=== PATIENT | female | born 1970 ===

== ENCOUNTER 2017-01-19 21:21 | Observation (INO) | payer SELFPAY ==
[2017-01-19 21:21] VITALS: BMI 31.3
[2017-01-19 21:27] VITALS: BP 157/64; PULSE 77; RESP 21; TEMP 98.2; O2SAT 100
[2017-01-19] MEDS ORDERED: Sodium Chloride 0.9% 1,000 ML IV STA (22:20)
[2017-01-19] MEDS ORDERED: Iohexol 240 (50 ml) PO ONE (22:21)
[2017-01-19 22:28] LABS: URINE BILIRUBIN NEGATIVE (NEGATIVE); URINE BLOOD NEGATIVE (NEGATIVE); URINE CLARITY CLOUDY (Clear); URINE COLOR YELLOW (YELLOW); URINE GLUCOSE (UA) NEG (Normal); URINE LEUKOCYTE ESTERASE MOD Leu/uL (Negative); URINE NITRATE NEGATIVE (NEGATIVE); URINE PROTEIN 30 mg/dL (NEGATIVE); URINE UROBILINOGEN 0.2-1.0 mg/dL (0.2-1.0)
[2017-01-19 22:30] LABS: HEMOGLOBIN 14.4 g/dL (12.0-16.0); MEAN CELL VOLUME 89.7 fl (81.0-99.0); MEAN CORPUSCULAR HEMOGLOBIN 30.7 pg (27.0-31.0); MEAN CORPUSCULAR HGB CONC 34.3 g/dL (33.0-37.0); MEAN PLATELET VOLUME 8.4 fl (7.2-11.7); PLATELET COUNT 246 K/uL (130-400); RED CELL DISTRIBUTION WIDTH 13.2 % (11.5-14.5); WHITE BLOOD COUNT 11.6 K/uL (4.8-10.8)
[2017-01-19 22:39] LABS: ALB/GLOB RATIO 1.3 (1.0-2.1); ALBUMIN 4.8 g/dL (3.5-5.0); ALT/SGPT 44 U/L (9-52); AST/SGOT 32 U/L (14-36); BLOOD UREA NITROGEN 12 mg/dl (7-17); CALCIUM 9.9 mg/dL (8.4-10.2); GFR AFRICAN-AMERICAN > 60; GFR NON-AFRICAN AMERICAN > 60; LIPASE 107 U/L (23-300)
--- NOTE | 2017-01-19 22:42 | ED PDOC ---
HPI: Abdomen Time Seen by Provider: 01/19/17 21:32 Chief Complaint (Nursing): Abdominal Pain Chief Complaint (Provider): Abdominal Pain History Per: Patient History/Exam Limitations: no limitations Onset/Duration Of Symptoms: Days (x4) Current Symptoms Are (Timing): Still Present Additional Complaint(s): Gabbi Dumont is a 46 year old female with previous medical history of H. Pylori, gastritis, and pre-diabetes, who presents to the emergency department with a complaint of epigastric abdominal pain radiating to RLQ associated with nausea and vomiting ongoing for 4 days. Denies any constipation , diarrhea, urinary complaints, fever, cough, shortness of breath, bloody or bilious vomiting. Pain scale: 8/10 PMD: none provided Past Medical History Reviewed: Historical Data, Nursing Documentation, Vital Signs Vital Signs: Last Vital Signs Temp 98.2 F 01/19/17 21:25 Pulse 77 01/19/17 21:25 Resp 21 01/19/17 21:25 BP 157/64 H 01/19/17 21:25 Pulse Ox 100 01/20/17 03:07 - Medical History PMH: Diabetes (pre-diabetes), Gastritis, Hypercholesterolemia Other PMH: H. pylori - Family History Family History: States: Stroke, Diabetes - Social History Current smoker - smoking cessation education provided: No Alcohol: None Drugs: Denies - Home Medications Home Medications: Ambulatory Orders Medication Instructions Recorded Azithromycin [Zithromax] 250 mg PO DAILY #4 tab 09/02/16 Dicyclomine [Bentyl] 20 mg PO Q12 PRN #20 tab 01/20/17 Ondansetron ODT [Zofran ODT] 4 mg PO Q6 PRN #16 odt 01/20/17 - Allergies Allergies/Adverse Reactions: Allergies Allergy/AdvReac Type Severity Reaction Status Date / Time No Known Allergies Allergy Verified 09/02/16 10:02 Review of Systems ROS Statement: Except As Marked, All Systems Reviewed And Found Negative Constitutional: Positive for: Other (pain scale: 8/10). Negative for: Fever Respiratory: Negative for: Cough, Shortness of Breath Gastrointestinal: Positive for: Nausea, Vomiting, Abdominal Pain (epigastric radiating to RLQ). Negative for: Diarrhea, Constipation, Other (bloody or billius vomiting) Genitourinary Female: Negative for: Dysuria, Hematuria Physical Exam - Reviewed Nursing Documentation Reviewed: Yes Vital Signs Reviewed: Yes - Physical Exam Appears: Positive for: Non-toxic, Uncomfortable Head Exam: Positive for: ATRAUMATIC, NORMAL INSPECTION, NORMOCEPHALIC Skin: Positive for: Normal Color, Warm, DRY Eye Exam: Positive for: Normal appearance Neck: Positive for: Normal, Painless ROM Cardiovascular/Chest: Positive for: Regular Rate, Rhythm Respiratory: Positive for: Normal Breath Sounds. Negative for: Crackles, Rales , Rhonchi, Wheezing Gastrointestinal/Abdominal: Positive for: Tenderness (epigastric and RLQ ). Negative for: Normal Exam Back: Positive for: Normal Inspection. Negative for: L CVA Tenderness, R CVA Tenderness Extremity: Positive for: Normal ROM Neurologic/Psych: Positive for: Alert, Oriented - Laboratory Results Result Diagrams: 01/19/17 22:23 01/19/17 22:23 - ECG O2 Sat by Pulse Oximetry: 100 (RA) Pulse Ox Interpretation: Normal Medical Decision Making Medical Decision Making: Initial Impression: Abdominal pain; RLQ tenderness Initial Plan: * CT ABD/Pelvis with PO and IV contrast * Labs * Lipase * Urine dipstick * Urine * Pepcid 20mg IV * Omnipaque 50ml PO * Toradol 10mg IV * NS 1,000 ml IV per 1,000 mls/hr * Zofran 4mg IV * Urinalysis * Re-evaluate Time: 22:34 --EK/30. Sinus rhythm bradycardia. [address] or T-wave abnormality. 0004: --PT resting comfortably, vital signs reviewed. Abdominal workups Pending CT 0303: CT Result EXAM: CT Abdomen and Pelvis With Intravenous Contrast CLINICAL HISTORY: 46 years old, female; Pain; Abdominal pain; Localized; Upper; Additional info: Abd pain TECHNIQUE: Axial computed tomography images of the abdomen and pelvis with intravenous contrast. This CT exam was performed using one or more of the following dose reduction techniques : automated exposure control, adjustment of the mA and/or kV according to patient size, and/ or use of iterative reconstruction technique. Coronal and sagittal reformatted images were created and reviewed. CONTRAST: 90 mL of [id number] administered intravenously. EXAM DATE/TIME: 01/19/2017 10:21 PM COMPARISON: CT - ABD PELVIS PO IV CONTRAST 08/18/2014 11:51:30 PM FINDINGS: There is an approximately 2.5 cm enhancing subcapsular lesion in the right hepatic lobe, more prominent than on prior . AV malformation would have a similar appearance. The spleen is normal. The pancreas is normal. No gallstones. No hydronephrosis or perinephric stranding. The right colon is distended with stool consistent with mild constipation. A normal appendix is identified series 3 images 110 - 120 coronal images 51-57. There is a very small umbilical fat hernia. Again seen are uterine fibroids. The largest is located on the right and has calcified in the interim since the prior study. IMPRESSION: Uterine fibroids one of which has calcified in the interim. Mild right-sided constipation. Benign-appearing right hepatic lesion. Thank you for allowing us to participate in the care of your patient. Discharge Instructions: Re-evaluation. Patient feels better. Discussed results and plan with patient who expresses understanding. Counseling was provided regarding the diagnosis and prognosis. All questions answered and there is agreement with the plan to discharge home with instructions. Patient stable for discharge. Return if symptoms persist or worsen. Scribe Attestation: Documented by Janel Miles, acting as a scribe for Dk Self MD. Documented by Annalisa Valadez, acting as a scribe for Dk Self MD. Provider Scribe Attestation: All medical record entries made by the Scribe were at my direction and personally dictated by me. I have reviewed the chart and agree that the record accurately reflects my personal performance of the history, physical exam, medical decision making, and the department course for this patient. I have also personally directed, reviewed, and agree with the discharge instructions and disposition. ED OBSERVATION Discharge: Yes Date of observation admission: 01/19/17 Time of observation admission: 22:34 - Observation admission statement Patient is being placed in observation because:: Abdominal pain workups - Goals of Observation Goals of observation are:: Pending Labs and CT - Progress Note Progress Note: 01/20/17 00:04 --PT resting comfortably, vital signs reviewed, pending CT. Disposition - Clinical Impression Clinical Impression: Abdominal pain, Gastritis - Patient ED Disposition Is Patient to be Admitted: No Comment: Follow up with GI specialist - Disposition Disposition: Routine/Home Disposition Time: 22:34 Condition: STABLE
[2017-01-19] MEDS ORDERED: Iohexol 240 (50 ml) ONE (23:33)
[2017-01-20 00:33] LABS: LYMPH % 48.2 % (20.0-40.0); MONO % 4.8 % (0.0-10.0); NEUT % 45.2 % (50.0-75.0)
[2017-01-20 00:34] LABS: BASO % 0.3 % (0.0-2.0); EOS % 1.5 % (0.0-4.0); NEUT # 5.4 K/uL (1.8-7.0); NRBC % 0.2 % (0.0-0.0)
[2017-01-20 00:35] LABS: EOS # 0.2 K/uL (0.0-0.7); LYMPH # 5.8 K/uL (1.0-4.3); MONO # 0.6 K/uL (0.0-0.8); TOTAL CELLS COUNTED 100
[2017-01-20 00:43] LABS: EOSINOPHIL 2 % (0-7); LYMPHOCYTE 43 % (20-50); MONOCYTE 2 % (0-10); NEUTROPHIL 48 % (42-75); PLATELET ESTIMATE NORMAL (NORMAL); REACTIVE LYMPHOCYTES 5 % (0-0)
[2017-01-20] MEDS ORDERED: Iohexol 300 100 ML IJ ONE (01:50)
[2017-01-20] MEDS ORDERED: Sodium Chloride 0.9% 50 ML IV ONE (01:50)
--- NOTE | 2017-01-20 15:41 | CT ---
PROCEDURE: CT abdomen and pelvis dated 01/20/2017 HISTORY: abd pain COMPARISON: Comparison made with CT scan abdomen and pelvis dated 08/18/2014 TECHNIQUE: Contiguous axial images of the abdomen and pelvis performed following oral and intravenous injection of approximately 90 cc of Omnipaque 300 contrast material. N. Coronal and Sagittal reformats generated. Radiation dose: Total exam DLP = 710.27 mGy-cm. This CT exam was performed using one or more of the following dose reduction techniques: Automated exposure control, adjustment of the mA and/or kV according to patient size, and/or use of iterative reconstruction technique. FINDINGS: LOWER THORAX: Lung bases clear. No infiltrate effusion or basilar pneumothorax. Tiny hiatal hernia. Heart size within range of normal. No pericardial effusion. LIVER: There is an approximately 2.5 x 2.0 cm heterogeneously enhancing lesion in the posterior superior right lobe liver beginning (subcapsular location) most consistent with a hemangioma or possibly AVM. This lesion appears appears more prominent than the prior study. . Mild fatty hepatic infiltration. Portal and splenic veins are opacified. GALLBLADDER AND BILE DUCTS: Unremarkable. PANCREAS: Unremarkable. No mass. No ductal dilatation. SPLEEN: Unremarkable. No splenomegaly. ADRENALS: Unremarkable. KIDNEYS AND URETERS: Unremarkable. No stone or hydronephrosis. BLADDER: Grossly unremarkable. REPRODUCTIVE: Uterine fibroids the largest has developed calcification since the prior exam. APPENDIX: Normal-appearing appendix. . BOWEL: Evaluation of the bowel is somewhat limited due to incomplete opacification. Stomach is incompletely distended which presumably accounts for thick-walled appearance. PERITONEUM: Unremarkable. No fluid collection. No free air. . Mild localized diastases mid anterior abdominal wall. Small fat containing umbilical hernia. LYMPH NODES: Unremarkable. No enlarged lymph nodes. VASCULATURE: Unremarkable. No aortic aneurysm. BONES: No fracture or destructive lesion. OTHER FINDINGS: None. IMPRESSION: The enhancing lesion posterior superior right lobe liver possibly representing a hemangioma or AVM. Followup MRI could be performed further evaluation. Mild fatty hepatic infiltration. Findings consistent with mild constipation. Small fat containing umbilical hernia with localized diastases mid anterior abdominal wall. Uterine fibroids the largest of which on the right side exhibits some calcification . Note this report was placed in PA review folder followup
== END 2017-01-20 03:23 | disposition home or self-care (01) ==
LOC: H.ER 21:21 → H.EROBSV 22:22
PROVIDERS: ADMIT Emergency Medicine; ATTEND Emergency Medicine
DX: K29.70 Gastritis, unspecified, without bleeding (principal); D25.9 Leiomyoma of uterus, unspecified; E78.00 Pure hypercholesterolemia, unspecified; K59.00 Constipation, unspecified; Z86.19 Personal history of other infectious and parasitic diseases; R73.03 Prediabetes; R10.31 Right lower quadrant pain
CPT/HCPCS: 74177; 80053; 81003; 81025; 83690; 85025; 99282; G0378; J1885; J2405; J7040; Q9966; Q9967

== ENCOUNTER 2017-06-05 10:19 | Emergency (ER) | payer OTHER ==
[2017-06-05 10:29] VITALS: BMI 30.7
[2017-06-05] MEDS ORDERED: Sodium Chloride 0.9% 1,000 ML IV STA (10:42)
[2017-06-05] MEDS ORDERED: Alum-Mag Hydrox-Simethicone Susp (30 mL) PO ONE (10:43)
[2017-06-05 10:56] LABS: BASO % 0.3 % (0.0-2.0); EOS # 0.1 K/uL (0.0-0.7); HEMATOCRIT 40.4 % (34.0-47.0); LYMPH # 4.1 K/uL (1.0-4.3); LYMPH % 50.7 % (20.0-40.0); MEAN CELL VOLUME 89.1 fl (81.0-99.0); MEAN CORPUSCULAR HEMOGLOBIN 30.8 pg (27.0-31.0); MEAN CORPUSCULAR HGB CONC 34.6 g/dL (33.0-37.0); MEAN PLATELET VOLUME 8.2 fl (7.2-11.7); MONO # 0.5 K/uL (0.0-0.8); MONO % 6.2 % (0.0-10.0); NEUT # 3.4 K/uL (1.8-7.0); NEUT % 41.8 % (50.0-75.0); NRBC % 0.1 % (0.0-0.0); RED CELL DISTRIBUTION WIDTH 12.8 % (11.5-14.5); WHITE BLOOD COUNT 8.2 K/uL (4.8-10.8)
[2017-06-05] MEDS ORDERED: Alum-Mag Hydrox-Simethicone Susp (30 mL) ONE (10:59)
[2017-06-05 11:08] LABS: ALB/GLOB RATIO 1.1 (1.0-2.1); ALKALINE PHOSPHATASE 90 U/L (38-126); ALT/SGPT 79 U/L (9-52); AST/SGOT 51 U/L (14-36); BILIRUBIN,TOTAL 0.6 mg/dl (0.2-1.3); BLOOD UREA NITROGEN 15 mg/dl (7-17); CALCIUM 8.9 mg/dL (8.4-10.2); CARBON DIOXIDE 25 mmol/L (22-30); CHLORIDE 106 mmol/L (98-107); GFR AFRICAN-AMERICAN > 60; GLUCOSE,RANDOM 114 mg/dL (65-105); LIPASE 81 U/L (23-300); POTASSIUM 3.4 MMOL/L (3.6-5.0); SODIUM 143 mmol/l (132-148); TOTAL PROTEIN 8.2 G/DL (6.3-8.2)
[2017-06-05 11:18] LABS: URINE BACTERIA RARE (<OCC); URINE BILIRUBIN NEGATIVE (NEGATIVE); URINE BLOOD NEGATIVE (NEGATIVE); URINE COLOR YELLOW (YELLOW); URINE GLUCOSE (UA) NEG (Normal); URINE KETONE TRACE mg/dL (NEGATIVE); URINE LEUKOCYTE ESTERASE TRACE Leu/uL (Negative); URINE PROTEIN NEGATIVE (NEGATIVE); URINE UROBILINOGEN 0.2-1.0 mg/dL (0.2-1.0)
[2017-06-05 11:20] LABS: WBC URINE 9 /hpf (0-5)
[2017-06-05 11:35] LABS: RBC URINE 2 /hpf (0-3)
--- NOTE | 2017-06-05 12:45 | US ---
HISTORY: epigastric and abd pain COMPARISON: None. TECHNIQUE: Sonographic evaluation of the abdomen. FINDINGS: LIVER: Measures 15.4 cm. Normal echogenicity of the liver parenchyma. No mass. No intrahepatic bile duct dilatation. GALLBLADDER: Unremarkable. No gallstones. COMMON BILE DUCT: Measures 6 mm. No stones. No dilatation. PANCREAS: Unremarkable as visualized. No mass. No ductal dilatation. RIGHT KIDNEY: Measures 10.9cm. Normal echogenicity. No calculus, mass, or hydronephrosis. LEFT KIDNEY: Measures 10.9cm. Normal echogenicity. No calculus, mass, or hydronephrosis. SPLEEN: Normal in size and contour. No mass. AORTA: No aneurysmal dilatation. IVC: Unremarkable. OTHER FINDINGS: None. IMPRESSION: Unremarkable abdominal sonogram.
[2017-06-05 15:37] VITALS: BP 115/69; PULSE 79; RESP 18; TEMP 98; O2SAT 98
--- NOTE | 2017-06-05 17:38 | ED PDOC ---
HPI: Abdomen Time Seen by Provider: 06/05/17 10:35 Chief Complaint (Nursing): Abdominal Pain Chief Complaint (Provider): Abdominal Pain History Per: Patient History/Exam Limitations: no limitations Onset/Duration Of Symptoms: Intermittent Episodes (over several weeks) Current Symptoms Are (Timing): Still Present Additional Complaint(s): 46 y/o female with past medical history of H pylori and gastritis presents to the ED complaining of epigastric pain ongoing intermittently over several weeks. Patient describes the pain as sharp that radiates to the back and symptoms are similar to H pylori. She experienced two episodes of vomiting (non- bloody). Denies cough, shortness of breath, melena, rectal bleeding or any further medical complaints. Past Medical History Reviewed: Historical Data, Nursing Documentation, Vital Signs Vital Signs: Last Vital Signs Temp 98 F 06/05/17 15:36 Pulse 79 06/05/17 15:36 Resp 18 06/05/17 15:36 BP 115/69 06/05/17 15:36 Pulse Ox 98 06/05/17 15:36 - Medical History PMH: Diabetes (pre-diabetes), Gastritis, Hypercholesterolemia Other PMH: H Pylori - Family History Family History: States: Stroke, Diabetes - Social History Current smoker - smoking cessation education provided: No Alcohol: None Drugs: Denies - Home Medications Home Medications: Ambulatory Orders Medication Instructions Recorded Pantoprazole Sodium [Protonix] 40 mg PO DAILY #14 ect 06/05/17 - Allergies Allergies/Adverse Reactions: Allergies Allergy/AdvReac Type Severity Reaction Status Date / Time No Known Allergies Allergy Verified 06/05/17 10:42 Review of Systems ROS Statement: Except As Marked, All Systems Reviewed And Found Negative (As per HPI, otherwise negative) Respiratory: Negative for: Cough, Shortness of Breath Gastrointestinal: Positive for: Nausea, Vomiting, Abdominal Pain (Epigastric pain). Negative for: Melena, Other (Rectal bleeding) Physical Exam - Reviewed Nursing Documentation Reviewed: Yes Vital Signs Reviewed: Yes - Physical Exam Appears: Positive for: Non-toxic, No Acute Distress Head Exam: Positive for: ATRAUMATIC, NORMAL INSPECTION, NORMOCEPHALIC Skin: Positive for: Normal Color, Warm, Dry Cardiovascular/Chest: Positive for: Regular Rate, Rhythm. Negative for: Murmur Respiratory: Positive for: Normal Breath Sounds. Negative for: Accessory Muscle Use, Respiratory Distress Gastrointestinal/Abdominal: Positive for: Tenderness (mild epigastric tenderness , negative garcia's sign) Neurologic/Psych: Positive for: Alert, Oriented (x3) - Laboratory Results Result Diagrams: 06/05/17 10:53 06/05/17 10:53 - ECG ECG: Positive for: Interpreted By Me, Viewed By Me ECG Rhythm: Positive for: Sinus Rhythm (83). Negative for: ST/T Changes O2 Sat by Pulse Oximetry: 98 (RA) Pulse Ox Interpretation: Normal Medical Decision Making Medical Decision Making: Time: 10:42 Initial Impression: epigastric pain Plan: --CMP --Lipase --Troponin I --CBC w/ diff --Urine dipstick --Urine --Aluminum hydroxide/magnesium 30 ml PO --Sodium chloride 1L IV --Zofran 4mg IV --Pantoprazole 40 mg IVP --Urinalysis --Abdomen US --Reevaluation Time: 12:43 Abdomen Ultrasound FINDINGS: LIVER: Measures 15.4 cm. Normal echogenicity of the liver parenchyma. No mass. No intrahepatic bile duct dilatation. GALLBLADDER: Unremarkable. No gallstones. COMMON BILE DUCT: Measures 6 mm. No stones. No dilatation. PANCREAS: Unremarkable as visualized. No mass. No ductal dilatation. RIGHT KIDNEY: Measures 10.9cm. Normal echogenicity. No calculus, mass, or hydronephrosis. LEFT KIDNEY: Measures 10.9cm. Normal echogenicity. No calculus, mass, or hydronephrosis. SPLEEN: Normal in size and contour. No mass. AORTA: No aneurysmal dilatation. IVC: Unremarkable. OTHER FINDINGS: None. IMPRESSION: Unremarkable abdominal sonogram. Time: 12:50 mild elevation of transanimase ( similar as 2016) Time: 15:00 Upon provider reevaluation patient is feeling better, is medically stable, and requires no further treatment in the ED at this time. Patient will be home with Rx for Aluminum hydroxide/magnesium 30 ml PO, Sodium chloride 1L IV,Zofran 4mg IV, Pantoprazole 40 mg IVP . Counseling was provided and all questions were answered regarding diagnosis and need for follow up with [employer]. There is agreement to discharge plan. Return if symptoms persist or worsen. Clinical Impression: Epigastric pain Scribe Attestation: Documented by Yanira Polk acting as a scribe for Rashaun Garces MD. MD Corbin Attestation: All medical record entries made by the Scribe were at my direction and personally dictated by me. I have reviewed the chart and agree that the record accurately reflects my personal performance of the history, physical exam, medical decision making, and the department course for this patient. I have also personally directed, reviewed, and agree with the discharge instructions and disposition. Disposition - Clinical Impression Clinical Impression: Epigastric pain - Disposition Referrals: [facility] [Outside] Lizbeth INMAN,MD Gordon [Medical Doctor] - Disposition: Routine/Home Disposition Time: 15:00 Condition: STABLE Additional Instructions: Avoid alcohol, spicy foods or caffeine./ Return to ER for any worse or new symptoms. Take medications as directed. Prescriptions: Pantoprazole Sodium [Protonix] 40 mg PO DAILY #14 ect Instructions: Chest Pain (ED), Epigastric Pain (ED) Forms: [employer] (Citizen [place])
== END 2017-06-05 15:45 | disposition home or self-care (01) ==
LOC: H.ER 10:19
DX: R10.13 Epigastric pain (principal); E78.00 Pure hypercholesterolemia, unspecified; R73.03 Prediabetes; B96.81 Helicobacter pylori [H. pylori] as the cause of diseases classified elsewhere
CPT/HCPCS: 76700; 80053; 81003; 81025; 83690; 84484; 85025; 96361; 96374; 96375; 99283; C9113; J2405; J7040

== ENCOUNTER 2017-08-24 11:15 | Emergency (ER) | payer OTHER ==
[2017-08-24 12:13] VITALS: BMI 25.7
--- NOTE | 2017-08-24 12:22 | ED PDOC ---
HPI: Abdomen Time Seen by Provider: 08/24/17 12:12 Chief Complaint (Nursing): Chest Pain Chief Complaint (Provider): abd pain History Per: Patient Onset/Duration Of Symptoms: Gradual Current Symptoms Are (Timing): Still Present Severity: Mild Location Of Pain/Discomfort: Epigastric Quality Of Discomfort: Burning Associated Symptoms: denies: Fever, Chills, Nausea, Vomiting, Back Pain, Chest Pain, Constipation, Urinary Symptoms Exacerbating Factors: None Alleviating Factors: None Last Bowel Movement: Today Additional History Per: Patient Additional Complaint(s): 46 y/o female with past medical history of H pylori and gastritis presents to the ED complaining of epigastric pain ongoing intermittently over 3 days. Patient describes the pain as sharp that radiates to the back and symptoms are similar to H pylori. Denies cough, shortness of breath, melena, rectal bleeding or any further medical complaints. similar sx in thge past approx 8 mo ago had neg abd us. Past Medical History Reviewed: Historical Data, Nursing Documentation, Vital Signs Vital Signs: Last Vital Signs Temp 97.5 F L 08/24/17 12:00 Pulse 70 08/24/17 14:53 Resp 20 08/24/17 13:17 BP 117/70 08/24/17 14:53 Pulse Ox 98 08/24/17 17:37 - Medical History PMH: Diabetes (pre-diabetes), Gastritis, Hypercholesterolemia - Family History Family History: States: Stroke, Diabetes - Living Arrangements Living Arrangements: With Family - Social History Current smoker - smoking cessation education provided: No - Home Medications Home Medications: Ambulatory Orders Medication Instructions Recorded Pantoprazole Sodium [Protonix] 40 mg PO DAILY #14 ect 06/05/17 Esomeprazole Magnesium [Nexium] 20 mg PO DAILY #30 mateus. 08/24/17 - Allergies Allergies/Adverse Reactions: Allergies Allergy/AdvReac Type Severity Reaction Status Date / Time No Known Allergies Allergy Verified 06/05/17 10:42 Review of Systems ROS Statement: Except As Marked, All Systems Reviewed And Found Negative Constitutional: Negative for: Fever, Chills Cardiovascular: Negative for: Chest Pain, Palpitations Respiratory: Negative for: Cough, Shortness of Breath Gastrointestinal: Positive for: Abdominal Pain. Negative for: Nausea, Vomiting , Diarrhea Musculoskeletal: Negative for: Neck Pain Skin: Negative for: Rash Neurological: Negative for: Weakness, Numbness Physical Exam - Reviewed Nursing Documentation Reviewed: Yes Vital Signs Reviewed: Yes - Physical Exam Appears: Positive for: Uncomfortable Head Exam: Positive for: ATRAUMATIC, NORMAL INSPECTION, NORMOCEPHALIC Eye Exam: Positive for: Normal appearance, EOMI, PERRL Neck: Positive for: Normal, Painless ROM, Supple Cardiovascular/Chest: Positive for: Regular Rate, Rhythm, Chest Non Tender. Negative for: Edema, Gallop Respiratory: Positive for: Normal Breath Sounds. Negative for: Decreased Breath Sounds, Accessory Muscle Use, Crackles, Rales, Rhonchi, Stridor, Wheezing , Respiratory Distress Gastrointestinal/Abdominal: Positive for: Normal Exam, Bowel Sounds, Soft. Negative for: Tenderness Back: Positive for: Normal Inspection. Negative for: L CVA Tenderness, R CVA Tenderness Extremity: Positive for: Normal ROM. 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 Negative for: Motor/Sensory Deficits - Laboratory Results Result Diagrams: 08/24/17 12:52 08/24/17 12:52 - ECG ECG: Positive for: Interpreted By Dc ECG Rhythm: Positive for: Normal QRS, Normal ST Segment, Sinus Rhythm (rate of 83). Negative for: ST/T Changes Interpretation Of Abn EKG: no evidence of ischemia O2 Sat by Pulse Oximetry: 98 Pulse Ox Interpretation: Normal - Radiology X-Ray: Interpreted by Dc X-Ray Interpretation: No Acute Disease - Progress ED Course And Treament: two trop neg, cta neg. sx improved advise repeat abd exam non tender. close f/u with gi and pmd. Re-evaluation Time: 17:28 Condition: Improved Disposition - Clinical Impression Clinical Impression: Gastritis - Patient ED Disposition Is Patient to be Admitted: No Counseled Patient/Family Regarding: Studies Performed, Diagnosis, Need For Followup - Disposition Referrals: Lizbeth INMAN,MD Gordon [Medical Doctor] - [facility] [Outside] Disposition: Routine/Home Disposition Time: 17:35 Condition: GOOD Prescriptions: Esomeprazole Magnesium [Nexium] 20 mg PO DAILY #30 capsule.dr Instructions: Gastritis (ED) Forms: [employer] (Urdu) Print Language: INDONESIAN
[2017-08-24 12:43] LABS: URINE BILIRUBIN NEGATIVE (NEGATIVE); URINE BLOOD NEGATIVE (NEGATIVE); URINE CLARITY CLEAR (Clear); URINE COLOR STRAW (YELLOW); URINE GLUCOSE (UA) NEG (Normal); URINE LEUKOCYTE ESTERASE NEG Leu/uL (Negative); URINE NITRATE NEGATIVE (NEGATIVE); URINE PROTEIN NEGATIVE (NEGATIVE); URINE UROBILINOGEN 0.2-1.0 mg/dL (0.2-1.0)
--- NOTE | 2017-08-24 12:48 | RAD ---
PROCEDURE: CHEST RADIOGRAPH, 1 VIEW HISTORY: chest pain COMPARISON: Comparison chest dated 09/02/2016 FINDINGS: LUNGS: Poor inspiration with low lung volumes, crowded bronchovascular markings and mild bibasilar atelectasis. PLEURA: No pneumothorax or pleural fluid seen. CARDIOVASCULAR: Normal. OSSEOUS STRUCTURES: No significant abnormalities. VISUALIZED UPPER ABDOMEN: Normal. OTHER FINDINGS: None. IMPRESSION: Poor inspiration with low lung volumes, crowded bronchovascular markings and mild bibasilar atelectasis.
[2017-08-24 12:56] LABS: BASO % 0.4 % (0.0-2.0); EOS # 0.2 K/uL (0.0-0.7); EOS % 2.1 % (0.0-4.0); HEMOGLOBIN 13.8 g/dL (12.0-16.0); LYMPH # 3.5 K/uL (1.0-4.3); MEAN CELL VOLUME 90.3 fl (81.0-99.0); MEAN CORPUSCULAR HEMOGLOBIN 30.5 pg (27.0-31.0); MEAN CORPUSCULAR HGB CONC 33.8 g/dL (33.0-37.0); MEAN PLATELET VOLUME 8.5 fl (7.2-11.7); MONO # 0.4 K/uL (0.0-0.8); MONO % 5.5 % (0.0-10.0); NEUT # 3.9 K/uL (1.8-7.0); RBC 4.54 Mil/uL (3.80-5.20); RED CELL DISTRIBUTION WIDTH 13.4 % (11.5-14.5)
[2017-08-24 13:08] VITALS: TEMP 97.5; O2SAT 98
[2017-08-24 13:18] VITALS: RESP 20
[2017-08-24 13:18] LABS: ALB/GLOB RATIO 1.1 (1.0-2.1); ALBUMIN 4.3 g/dL (3.5-5.0); ALT/SGPT 33 U/L (9-52); AST/SGOT 28 U/L (14-36); BLOOD UREA NITROGEN 13 mg/dl (7-17); CALCIUM 9.7 mg/dL (8.4-10.2); GFR AFRICAN-AMERICAN > 60; GFR NON-AFRICAN AMERICAN > 60; LIPASE 121 U/L (23-300); MAGNESIUM 2.1 MG/DL (1.6-2.3)
[2017-08-24 13:20] LABS: PARTIAL THROMBOPLASTIN TIME 30.2 Seconds (25.6-37.1); PROTHROMBIN TIME 11.2 Seconds (9.8-13.1)
[2017-08-24 13:31] LABS: B-TYPE NATRIURETIC PEPTIDE 28.3 pg/ml (0-450)
[2017-08-24 14:53] VITALS: PULSE 70
[2017-08-24] MEDS ORDERED: Iodixanol 320 MG/ML 100 ML BOTTLE IV ONE (15:52)
[2017-08-24] MEDS ORDERED: Sodium Chloride 0.9% 50 ML IV ONE (15:52)
--- NOTE | 2017-08-24 17:20 | CT ---
PROCEDURE: CT Chest with contrast (Pulmonary Angiogram) HISTORY: Chest pain radiating to the back. COMPARISON: August 24, 2017. Single-view chest TECHNIQUE: Axial computed tomography images were obtained of the chest in the pulmonary arterial phase of enhancement. Coronal and sagittal reformatted images were created and reviewed. Maximum intensity projection (MIP) reconstructed images in the following planes: All 3 orthogonal projections. Intravenous contrast dose: 95 cc Visipaque 320. Mean Hounsfield unit values in the main pulmonary artery: 284.66 Radiation dose: Total exam DLP = 437.22 mGy-cm. This CT exam was performed using one or more of the following dose reduction techniques: Automated exposure control, adjustment of the mA and/or kV according to patient size, and/or use of iterative reconstruction technique. FINDINGS: PULMONARY ARTERIES: Unremarkable. No pulmonary embolism. AORTA: No acute findings. No thoracic aortic aneurysm. LUNGS: Unremarkable. No nodule, mass or pulmonary consolidation. PLEURAL SPACES: Unremarkable. No effusion or pneuomothorax. HEART: Unremarkable. No cardiomegaly. No significant pericardial effusion. LYMPH NODES: No lymphadenopathy. BONES, CHEST WALL: Unremarkable. No fracture or destructive lesion OTHER FINDINGS: Unremarkable. IMPRESSION: Unremarkable CT pulmonary angiogram. No pulmonary embolus.
[2017-08-24 18:08] VITALS: BP 117/73
--- NOTE | 2017-08-25 10:51 | CARD ---
APPROVED REPORT EKG Measurement Heart [id number] <Conclusion> Normal sinus rhythm Normal ECG
== END 2017-08-24 17:58 | disposition home or self-care (01) ==
LOC: H.ER 11:15
DX: K29.70 Gastritis, unspecified, without bleeding (principal); R73.03 Prediabetes; E78.00 Pure hypercholesterolemia, unspecified
CPT/HCPCS: 71045; 71275; 80053; 81003; 81025; 83690; 83735; 83880; 84484; 85025; 85378; 85610; 85730; 93005; 96374; 99285; Q9967

== ENCOUNTER 2018-04-06 08:41 | Emergency (ER) | payer OTHER, SELFPAY ==
[2018-04-06 08:42] VITALS: BMI 25.7
[2018-04-06 08:47] VITALS: TEMP 98.3
--- NOTE | 2018-04-06 09:41 | ED PDOC ---
HPI: Influenza Time Seen by Provider: 04/06/18 09:06 Chief Complaint: Cough, Cold, Congestion Chief Complaint (Provider): runny nose, cough, sore throat History Per: Patient Onset/Duration Of Symptoms: Days (x1 weekk) Symptoms include: denies: fever Additional complaint(s):: Gabbi Dumont, a 47 year old female with no significant past medical history, presents to the emergency department with a runny nose, cough and sore throat onset 1 week ago. Patient reports her daughter being sick recently. She states she has back pain with cough and sore throat with cough but denies fever or taking anything for pain. No further medical complaints. Past Medical History Reviewed: Historical Data, Nursing Documentation, Vital Signs Vital Signs: Last Vital Signs Temp 98.3 F 04/06/18 08:47 Pulse 97 H 04/06/18 08:47 Resp 18 04/06/18 08:47 BP 144/97 H 04/06/18 08:47 Pulse Ox 97 04/06/18 08:47 - Medical History PMH: Diabetes (pre-diabetes), Gastritis, Hypercholesterolemia Denies: Chronic Kidney Disease - Family History Family History: States: Stroke, Diabetes - Home Medications Home Medications: Ambulatory Orders Medication Instructions Recorded Pantoprazole Sodium [Protonix] 40 mg PO DAILY #14 ect 06/05/17 Esomeprazole Magnesium [Nexium] 20 mg PO DAILY #30 capsule. 08/24/17 Ibuprofen [Motrin] 600 mg PO Q6H PRN #20 tab 04/06/18 guaiFENesin/Dextromethorphan 10 ml PO Q4 PRN #1 bottle 04/06/18 [guaiFENesin-DM] - Allergies Allergies/Adverse Reactions: Allergies Allergy/AdvReac Type Severity Reaction Status Date / Time No Known Allergies Allergy Verified 04/06/18 09:06 Review of Systems ROS Statement: Except As Marked, All Systems Reviewed And Found Negative Constitutional: Negative for: Fever ENT: Positive for: Throat Pain (with cough), Other (rhinorrhea) Respiratory: Positive for: Cough Musculoskeletal: Positive for: Back Pain (with cough) Physical Exam - Reviewed Nursing Documentation Reviewed: Yes Vital Signs Reviewed: Yes - Physical Exam Appears: Positive for: Well, Non-toxic, No Acute Distress Head Exam: Positive for: ATRAUMATIC, NORMAL INSPECTION, NORMOCEPHALIC Skin: Positive for: Normal Color, Warm, DRY Eye Exam: Positive for: EOMI, Normal appearance, PERRL ENT: Positive for: Normal ENT Inspection Neck: Positive for: Normal, Painless ROM Cardiovascular/Chest: Positive for: Regular Rate, Rhythm Respiratory: Positive for: Normal Breath Sounds. Negative for: Respiratory Distress Gastrointestinal/Abdominal: Positive for: Normal Exam, Soft Back: Positive for: Normal Inspection Extremity: Positive for: Normal ROM Neurologic/Psych: Positive for: Alert, Oriented Medical Decision Making Medical Decision Making: Time: 9:06 Initial Impression: URI, cough Initial Plan: --ED urine --Cxr 2 views --Motrin 600 mg PO Scribe Attestation: Documented by Esme Swartz, acting as a scribe for Raissa Tinoco MD. Provider Scribe Attestation: All medical record entries made by the Scribe were at my direction and personally dictated by me. I have reviewed the chart and agree that the record accurately reflects my personal performance of the history, physical exam, medical decision making, and the department course for this patient. I have also personally directed, reviewed, and agree with the discharge instructions and disposition. - ECG O2 Sat by Pulse Oximetry: 97 (RA) Pulse Ox Interpretation: Normal - Radiology X-Ray: Interpreted by Me X-Ray Interpretation: No Acute Disease Disposition - Clinical Impression Clinical Impression: URI (upper respiratory infection) - Disposition Referrals: [facility] [Outside] Disposition: Routine/Home Disposition Time: 11:10 Condition: STABLE Prescriptions: guaiFENesin/Dextromethorphan [guaiFENesin-DM] 10 ml PO Q4 PRN #1 bottle PRN Reason: Cough Ibuprofen [Motrin] 600 mg PO Q6H PRN #20 tab PRN Reason: Pain, Moderate (4-7) Instructions: Viral Upper Respiratory Infection, Adult (DC) Forms: [employer] [place] (Georgian) Print Language: BRITISH [place]
[2018-04-06 11:21] VITALS: BP 135/82; PULSE 87; RESP 16; O2SAT 99
--- NOTE | 2018-04-06 17:56 | RAD ---
Date of service: 04/06/2018 HISTORY: Cough COMPARISON: No prior. TECHNIQUE: Chest PA and lateral FINDINGS: LUNGS: No active pulmonary disease. PLEURA: No significant pleural effusion identified. No pneumothorax apparent. CARDIOVASCULAR: Normal. OSSEOUS STRUCTURES: No significant abnormalities. VISUALIZED UPPER ABDOMEN: Normal. OTHER FINDINGS: None. IMPRESSION: No active disease.
== END 2018-04-06 11:20 | disposition home or self-care (01) ==
LOC: H.ER 08:41
DX: J06.9 Acute upper respiratory infection, unspecified (principal); E78.00 Pure hypercholesterolemia, unspecified; R73.03 Prediabetes

== ENCOUNTER 2018-05-28 14:33 | Emergency (ER) | payer SELFPAY ==
[2018-05-28 14:33] VITALS: BMI 25.7
[2018-05-28 14:47] VITALS: RESP 20
[2018-05-28] MEDS ORDERED: Albuterol 0.083% Inhal Sol (2.5 mg/3 mL) UD INH ONE (15:43)
--- NOTE | 2018-05-28 15:52 | ED PDOC ---
History of Present Illness History of Present Illness: Gabbi Dumont is a 47 year old female with a past medical history of gestational diabetes and hypercholesterolemia who is presenting to ED with child for evaluation of cough associated with clear phlegm and an episode of vomiting onset 2-3 weeks ago. Patient states that she was here 2 weeks ago for the same complaint and was given medications with no relief. Patient denies any fevers and offers no other medical complaints. Of note, patient did not cough once while provider was in room evaluating her. 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 denies: fever Past Medical History Reviewed: Historical Data, Nursing Documentation, Vital Signs Vital Signs: Last Vital Signs Temp 98.3 F 05/28/18 14:43 Pulse 89 05/28/18 14:43 Resp 20 05/28/18 14:43 BP 135/82 05/28/18 14:43 Pulse Ox 96 05/28/18 14:43 - Medical History PMH: Diabetes (pre-diabetes), Gastritis, Hypercholesterolemia Denies: Chronic Kidney Disease - Surgical History Surgical History: No Surg Hx - Family History Family History: States: Stroke, Diabetes - Social History Current smoker - smoking cessation education provided: No Alcohol: None Drugs: Denies - Home Medications Home Medications: Ambulatory Orders Medication Instructions Recorded Pantoprazole Sodium [Protonix] 40 mg PO DAILY #14 ect 06/05/17 Esomeprazole Magnesium [Nexium] 20 mg PO DAILY #30 capsule. 08/24/17 Ibuprofen [Motrin] 600 mg PO Q6H PRN #20 tab 04/06/18 guaiFENesin/Dextromethorphan 10 ml PO Q4 PRN #1 bottle 04/06/18 [guaiFENesin-DM] Albuterol HFA [Ventolin HFA 90 1 - 2 puff IH Q4H PRN #1 bottle 05/28/18 mcg/actuation (8 g)] - Allergies Allergies/Adverse Reactions: Allergies Allergy/AdvReac Type Severity Reaction Status Date / Time No Known Allergies Allergy Verified 04/06/18 09:06 Review of Systems ROS Statement: Except As Marked, All Systems Reviewed And Found Negative Constitutional: Negative for: Fever Respiratory: Positive for: Cough, Sputum (clear) Gastrointestinal: Positive for: Vomiting Physical Exam - Reviewed Nursing Documentation Reviewed: Yes Vital Signs Reviewed: Yes - Physical Exam Appears: Positive for: Well, Non-toxic, No Acute Distress Head Exam: Positive for: ATRAUMATIC, NORMAL INSPECTION, NORMOCEPHALIC Skin: Positive for: Normal Color, Warm, DRY Eye Exam: Positive for: Normal appearance ENT: Positive for: Normal ENT Inspection, Pharynx Is (clear), TM Is/Are (normal). Negative for: Pharyngeal Erythema Cardiovascular/Chest: Positive for: Regular Rate, Rhythm. Negative for: Murmur Respiratory: Positive for: Normal Breath Sounds. Negative for: Respiratory Distress Gastrointestinal/Abdominal: Positive for: Normal Exam, Soft. Negative for: Tenderness Neurologic/Psych: Positive for: Alert, Oriented. Negative for: Motor/Sensory Deficits Medical Decision Making Medical Decision Making: Time: 15:45 Plan: --Albuterol 2.5 mg INH --Peak Flow Pre/post Tx --Influenza A B --Resp Syncytial Virus --Chest X-Ray ----- Scribe Attestation: Documented by, Verena Barlow acting as a scribe for Lala Howell MD. Provider Scribe Attestation: All medical record entries made by the Scribe were at my direction and personally dictated by me. I have reviewed the chart and agree that the record accurately reflects my personal performance of the history, physical exam, medical decision making, and the department course for this patient. I have also personally directed, reviewed, and agree with the discharge instructions and d isposition. Time: 1740 -- RSV and Influenza A B results are negative -- CXR demonstrates no acute findings. -- Patient is stable for discharge home. Patient given return parameters. Patient instructed to follow up with the Clinic for further evaluation. Scribe Attestation: Documented by Opal Suarez, acting as a scribe for Lala Howell MD. Provider Scribe Attestation: All medical record entries made by the Scribe were at my direction and personally dictated by me. I have reviewed the chart and agree that the record accurately reflects my personal performance of the history, physical exam, medical decision making, and the department course for this patient. I have also personally directed, reviewed, and agree with the discharge instructions and disposition. - ECG O2 Sat by Pulse Oximetry: 96 Disposition - Clinical Impression Clinical Impression: Cough - Disposition Referrals: [facility] [Outside] [facility] [Outside] FAMILY PROVIDER,NO [Primary Care Provider] - Disposition Time: 17:40 Condition: IMPROVED Additional Instructions: follow up with the clinic in 1-2 days return to the ED with any worsening or concerning symptoms Prescriptions: Albuterol HFA [Ventolin HFA 90 mcg/actuation (8 g)] 1 - 2 puff IH Q4H PRN #1 bottle PRN Reason: Wheezing Instructions: Cough, Adult (DC) Forms: [facility] (Cypriot), [facility] (South Korean) Print Language: GABONESE
[2018-05-28] MEDS ORDERED: Albuterol 0.083% Inhal Sol (2.5 mg/3 mL) UD ONE (15:58)
--- NOTE | 2018-05-28 16:42 | RAD ---
Date of service: 05/28/2018 HISTORY: Shortness of breath COMPARISON: 04/06/2018. TECHNIQUE: Chest PA and lateral FINDINGS: LINES AND TUBES: None. LUNG AND PLEURA: The lungs are well inflated and clear. No pleural effusion or pneumothorax. HEART AND MEDIASTINUM: The heart is not enlarged. No aortic atherosclerotic calcification present. The hilar and mediastinal contours are within normal limits. SKELETAL STRUCTURES: The bony structures are within normal limits for the patient's age. VISUALIZED UPPER ABDOMEN: Normal. OTHER FINDINGS: None. IMPRESSION: No active pulmonary disease.
[2018-05-28 18:00] VITALS: BP 121/78; PULSE 84; TEMP 98.1; O2SAT 98
== END 2018-05-28 17:42 | disposition home or self-care (01) ==
LOC: SUPCPDRO 14:33 → H.ER 14:33
DX: R05 Cough (principal); R06.2 Wheezing

== ENCOUNTER 2018-07-19 19:57 | Emergency (ER) | payer OTHER ==
[2018-07-19 19:57] VITALS: BMI 25.7
[2018-07-19 20:10] VITALS: TEMP 97.7
[2018-07-19] MEDS ORDERED: Alum-Mag Hydrox-Simethicone Susp (30 mL) PO STA (20:38)
[2018-07-19 20:47] LABS: BASO % 0.5 % (0.0-2.0); EOS # 0.1 K/uL (0.0-0.7); EOS % 0.9 % (0.0-4.0); HEMOGLOBIN 13.5 g/dL (12.0-16.0); LYMPH # 3.9 K/uL (1.0-4.3); LYMPH % 52.7 % (20.0-40.0); MEAN CELL VOLUME 92.1 fl (81.0-99.0); MEAN CORPUSCULAR HEMOGLOBIN 30.9 pg (27.0-31.0); MEAN CORPUSCULAR HGB CONC 33.5 g/dL (33.0-37.0); MEAN PLATELET VOLUME 8.3 fl (7.2-11.7); MONO # 0.4 K/uL (0.0-0.8); MONO % 5.5 % (0.0-10.0); NEUT % 40.4 % (50.0-75.0); NRBC % 0.1 % (0.0-0.0); RBC 4.37 Mil/uL (3.80-5.20); WHITE BLOOD COUNT 7.5 K/uL (4.8-10.8)
[2018-07-19] MEDS ORDERED: Alum-Mag Hydrox-Simethicone Susp (30 mL) ONE (20:47)
[2018-07-19 20:58] LABS: ALB/GLOB RATIO 1.1 (1.0-2.1); ALBUMIN 4.2 g/dL (3.5-5.0); ALT/SGPT 41 U/L (9-52); AST/SGOT 39 U/L (14-36); BLOOD UREA NITROGEN 19 mg/dl (7-17); CALCIUM 9.2 mg/dL (8.4-10.2); GFR NON-AFRICAN AMERICAN > 60
[2018-07-19 21:24] VITALS: O2SAT 100
--- NOTE | 2018-07-19 21:32 | ED PDOC ---
HPI: Chest Pain Time Seen by Provider: 07/19/18 20:12 Chief Complaint (Nursing): Chest Pain Chief Complaint (Provider): Chest Pain History Per: Patient History/Exam Limitations: no limitations Onset/Duration Of Symptoms: Days (x14), Worse Since (x3) Current Symptoms Are (Timing): Still Present Additional Complaint(s): Patient is a 47 y/o female with a PMHx of anxiety, hypercholesterolemia, DM, and gastritis who presents to the ED for evaluation of tingling and numbness in the left hand for the past two weeks. As of the past three days, pain has radiated to the whole arm and shoulder associated with neck pain. In addition, patient began experiencing stomach pain today with CP and nausea. Patient denies vomiting, diarrhea, chills, and loss of appetite. Patient tried Pepcid and Prilosec with minimal relief. PCP: None Provided Past Medical History Reviewed: Historical Data, Nursing Documentation, Vital Signs Vital Signs: Last Vital Signs Temp 97.7 F 07/19/18 20:06 Pulse 61 07/19/18 21:20 Resp 16 07/19/18 21:20 BP 131/86 07/19/18 21:20 Pulse Ox 100 07/19/18 21:20 - Medical History PMH: Anxiety, Diabetes (pre-diabetes), Gastritis, Hypercholesterolemia Denies: Chronic Kidney Disease - Surgical History Surgical History: No Surg Hx - Family History Family History: States: Stroke, Diabetes, Hypertension - Social History Current smoker - smoking cessation education provided: No - Home Medications Home Medications: Ambulatory Orders Medication Instructions Recorded Pantoprazole Sodium [Protonix] 40 mg PO DAILY #14 ect 06/05/17 Esomeprazole Magnesium [Nexium] 20 mg PO DAILY #30 capsule. 08/24/17 Ibuprofen [Motrin] 600 mg PO Q6H PRN #20 tab 04/06/18 guaiFENesin/Dextromethorphan 10 ml PO Q4 PRN #1 bottle 04/06/18 [guaiFENesin-DM] Albuterol HFA [Ventolin HFA 90 1 - 2 puff IH Q4H PRN #1 bottle 05/28/18 mcg/actuation (8 g)] Acetaminophen [Tylenol Extra 1,000 mg PO Q6 PRN #100 tablet 07/19/18 Strength] Cyclobenzaprine [Flexeril] 5 mg PO Q8 PRN #15 tab 07/19/18 Esomeprazole Magnesium [Nexium 20 mg PO DAILY #20 capsule. 07/19/18 24Hr] - Allergies Allergies/Adverse Reactions: Allergies Allergy/AdvReac Type Severity Reaction Status Date / Time No Known Allergies Allergy Verified 04/06/18 09:06 Review of Systems ROS Statement: Except As Marked, All Systems Reviewed And Found Negative (as per HPI) Constitutional: Negative for: Chills Cardiovascular: Positive for: Chest Pain Gastrointestinal: Positive for: Nausea, Abdominal Pain (stomach). Negative for: Vomiting, Diarrhea Musculoskeletal: Positive for: Neck Pain, Arm Pain (Left) Psych: Positive for: Anxiety Physical Exam - Reviewed Nursing Documentation Reviewed: Yes Vital Signs Reviewed: Yes - Physical Exam Appears: Positive for: No Acute Distress Head Exam: Positive for: ATRAUMATIC, NORMAL INSPECTION, NORMOCEPHALIC Skin: Positive for: Warm, Dry Eye Exam: Positive for: EOMI, PERRL ENT: Negative for: Pharyngeal Erythema, Tonsillar Exudate Neck: Positive for: Painless ROM, Supple Cardiovascular/Chest: Positive for: Regular Rate, Rhythm. Negative for: Murmur Respiratory: Positive for: Normal Breath Sounds. Negative for: Wheezing Gastrointestinal/Abdominal: Positive for: Normal Exam, Soft. Negative for: Tenderness, Mass, Distended, Guarding, Rebound Back: Positive for: Normal Inspection. Negative for: Muscle Spasm Extremity: Positive for: Normal ROM. Negative for: Deformity Lymphatic: Negative for: Adenopathy Neurologic/Psych: Positive for: Alert, Mood/Affect (Anxious). Negative for: Motor/Sensory Deficits - Laboratory Results Result Diagrams: 07/19/18 20:43 07/19/18 20:43 - ECG ECG Rhythm: Positive for: Normal QRS, Normal ST Segment, Sinus Rhythm Rate: 59 O2 Sat by Pulse Oximetry: 100 Medical Decision Making Medical Decision Making: Time: 2042 Impression: Chest pain w/o cardiac risk factors DDx includes but not limited to costochondritis, reflux, anxiety, cervical radiculopathy and gastritis. Plan: EKG CMP Magnesium Phosphorus TSH Troponin I Urine Urine Dipstick CBC D Dimer Chest Two Views Maalox plus 30 ml PO Pepcid 20 mg PO IV Insertion (Saline Lock) 10p Labs unremarkable CXR no acute findings DW pt findings and plan of care. NSAIDs, PPIs, zofran. Follow up clinic Scribe Attestation: Documented by Guillermo Willingham, acting as a scribe for Dr. Tammy Yuan. Provider Scribe Attestation: All medical record entries made by the Scribe were at my direction and personally dictated by me. I have reviewed the chart and agree that the record accurately reflects my personal performance of the history, physical exam, medical decision making, and the department course for this patient. I have also personally directed, reviewed, and agree with the discharge instructions and disposition. Disposition - Clinical Impression Clinical Impression: Cervical radiculopathy, Abdominal pain, Chest pain Counseled Patient/Family Regarding: Studies Performed, Diagnosis, Need For Followup, Rx Given - Disposition Referrals: [facility] [Outside] - 07/21/18 Disposition: Routine/Home Disposition Time: 22:09 Condition: STABLE Prescriptions: Acetaminophen [Tylenol Extra Strength] 1,000 mg PO Q6 PRN #100 tablet PRN Reason: FEVER OR PAIN Cyclobenzaprine [Flexeril] 5 mg PO Q8 PRN #15 tab PRN Reason: neck or chest muscle tightness Esomeprazole Magnesium [Nexium 24Hr] 20 mg PO DAILY #20 capsule. Instructions: Radiculopathy (DC), Chest Pain (DC), Acute Abdomen (Belly Pain), Adult (DC) Print Language: SENEGALESE
[2018-07-19 22:40] VITALS: BP 119/86; PULSE 68; RESP 15
--- NOTE | 2018-07-20 10:30 | RAD ---
Date of service: 07/19/2018 HISTORY: chest pain COMPARISON: No prior. TECHNIQUE: Chest PA and lateral FINDINGS: LUNGS: No active pulmonary disease. PLEURA: No significant pleural effusion identified. No pneumothorax apparent. CARDIOVASCULAR: No aortic atherosclerotic calcification present. Normal cardiac size. No pulmonary vascular congestion. OSSEOUS STRUCTURES: No significant abnormalities. VISUALIZED UPPER ABDOMEN: Normal. OTHER FINDINGS: None. IMPRESSION: No active disease.
--- NOTE | 2018-07-20 20:12 | CARD ---
APPROVED REPORT Date of service: 07/19/2018 EKG Measurement Heart [id number] <Conclusion> Sinus bradycardia Otherwise normal ECG
== END 2018-07-19 22:39 | disposition home or self-care (01) ==
LOC: H.ER 19:57
DX: R07.89 Other chest pain (principal); R10.9 Unspecified abdominal pain; M54.12 Radiculopathy, cervical region

== ENCOUNTER 2018-09-16 18:19 | Emergency (ER) | payer OTHER ==
[2018-09-16 18:19] VITALS: BMI 25.7
[2018-09-16 18:52] VITALS: TEMP 98.2; O2SAT 95
[2018-09-16] MEDS ORDERED: Sodium Chloride 0.9% 1,000 ML IV STA (19:34)
[2018-09-16 20:37] LABS: BASO % 0.3 % (0.0-2.0); EOS % 0.4 % (0.0-4.0); HEMOGLOBIN 13.7 g/dL (12.0-16.0); LYMPH # 3.9 K/uL (1.0-4.3); LYMPH % 34.9 % (20.0-40.0); MEAN CELL VOLUME 92.9 fl (81.0-99.0); MEAN CORPUSCULAR HEMOGLOBIN 30.7 pg (27.0-31.0); MEAN PLATELET VOLUME 8.6 fl (7.2-11.7); MONO # 0.6 K/uL (0.0-0.8); MONO % 5.2 % (0.0-10.0); NEUT # 6.7 K/uL (1.8-7.0); NEUT % 59.2 % (50.0-75.0); NRBC % 0.2 % (0.0-0.0); RBC 4.46 Mil/uL (3.80-5.20); RED CELL DISTRIBUTION WIDTH 13.4 % (11.5-14.5); WHITE BLOOD COUNT 11.3 K/uL (4.8-10.8)
[2018-09-16 20:48] LABS: ALB/GLOB RATIO 1.2 (1.0-2.1); ALBUMIN 4.4 g/dL (3.5-5.0); ALT/SGPT 35 U/L (9-52); AST/SGOT 29 U/L (14-36); BLOOD UREA NITROGEN 13 mg/dl (7-17); CALCIUM 9.7 mg/dL (8.4-10.2); GFR NON-AFRICAN AMERICAN > 60; LIPASE 93 U/L (23-300)
[2018-09-16 20:49] LABS: SQUAMOUS EPITHIAL 3 /hpf (0-5); URINE BACTERIA RARE (<OCC); URINE BILIRUBIN NEGATIVE (NEGATIVE); URINE BLOOD NEGATIVE (NEGATIVE); URINE CALCIUM OXALATE CRYSTALS MANY /hpf (<OCC); URINE CLARITY CLOUDY (Clear); URINE COLOR YELLOW (YELLOW); URINE GLUCOSE (UA) NEG (NEGATIVE); URINE LEUKOCYTE ESTERASE NEG Leu/uL (Negative); URINE PROTEIN NEGATIVE (NEGATIVE); URINE UROBILINOGEN 0.2-1.0 mg/dL (0.2-1.0)
--- NOTE | 2018-09-16 20:52 | ED PDOC ---
HPI: Abdomen Time Seen by Provider: 09/16/18 19:19 Chief Complaint (Nursing): Abdominal Pain Chief Complaint (Provider): Abdominal Pain History Per: Patient History/Exam Limitations: no limitations Onset/Duration Of Symptoms: Persistent (x1 week) Current Symptoms Are (Timing): Still Present Additional Complaint(s): 47 year old female with past history of depression and anxiety, presents to the emergency department with a complaint of upper abdominal pain associated with nausea, vomiting, and diarrhea ongoing intermittently for 1 week. She denies radiation of pain, fever, chills, cough, shortness of breath, or chest pain. Patient states that she has had similar symptoms in the past with negative work-up. PCP: Dr. Nicolas Mc Past Medical History Reviewed: Historical Data, Nursing Documentation, Vital Signs Vital Signs: Last Vital Signs Temp 98.2 F 09/16/18 18:51 Pulse 81 09/16/18 18:51 Resp 16 09/16/18 18:51 BP 137/82 09/16/18 18:51 Pulse Ox 95 09/16/18 18:51 - Medical History PMH: Anxiety, Depression, Diabetes (pre-diabetes), Gastritis, Hypercholes terolemia Denies: Chronic Kidney Disease - Family History Family History: States: Stroke, Diabetes, Hypertension - Home Medications Home Medications: Ambulatory Orders Medication Instructions Recorded Pantoprazole Sodium [Protonix] 40 mg PO DAILY #14 ect 06/05/17 Esomeprazole Magnesium [Nexium] 20 mg PO DAILY #30 capsule. 08/24/17 Ibuprofen [Motrin] 600 mg PO Q6H PRN #20 tab 04/06/18 guaiFENesin/Dextromethorphan 10 ml PO Q4 PRN #1 bottle 04/06/18 [guaiFENesin-DM] Albuterol HFA [Ventolin HFA 90 1 - 2 puff IH Q4H PRN #1 bottle 05/28/18 mcg/actuation (8 g)] Acetaminophen [Tylenol Extra 1,000 mg PO Q6 PRN #100 tablet 07/19/18 Strength] Cyclobenzaprine [Flexeril] 5 mg PO Q8 PRN #15 tab 07/19/18 Esomeprazole Magnesium [Nexium 20 mg PO DAILY #20 capsule. 07/19/18 24Hr] Esomeprazole Magnesium [Nexium] 20 mg PO QAM #14 ecc 09/16/18 Ondansetron ODT [Zofran ODT] 4 mg PO Q6 PRN #8 odt 09/16/18 - Allergies Allergies/Adverse Reactions: Allergies Allergy/AdvReac Type Severity Reaction Status Date / Time No Known Allergies Allergy Verified 09/16/18 18:51 Review of Systems ROS Statement: Except As Marked, All Systems Reviewed And Found Negative Constitutional: Negative for: Fever, Chills Cardiovascular: Negative for: Chest Pain Respiratory: Negative for: Cough, Shortness of Breath Gastrointestinal: Positive for: Nausea, Vomiting, Abdominal Pain (upper), Diarrhea Physical Exam - Reviewed Nursing Documentation Reviewed: Yes Vital Signs Reviewed: Yes - Physical Exam Appears: Positive for: Non-toxic, No Acute Distress Head Exam: Positive for: ATRAUMATIC, NORMAL INSPECTION, NORMOCEPHALIC Skin: Positive for: Normal Color Eye Exam: Positive for: Normal appearance ENT: Positive for: Other (dry mucous membranes). Negative for: Pharyngeal Erythema, Tonsillar Swelling Neck: Positive for: Normal Cardiovascular/Chest: Positive for: Regular Rate, Rhythm Respiratory: Positive for: Normal Breath Sounds. Negative for: Respiratory Distress Gastrointestinal/Abdominal: Positive for: Soft, Tenderness (epigastric) Back: Positive for: Normal Inspection. Negative for: L CVA Tenderness, R CVA Tenderness Extremity: Positive for: Normal ROM (upper/lower) Neurologic/Psych: Positive for: Alert, Oriented. Negative for: Motor/Sensory Deficits - Laboratory Results Result Diagrams: 09/16/18 19:59 09/16/18 19:59 Lab Results: Total Bilirubin 0.3 mg/dl (0.2-1.3) 09/16/18 19:59 AST 29 U/L (14-36) 09/16/18 19:59 ALT 35 U/L (9-52) 09/16/18 19:59 Alkaline Phosphatase 70 U/L (38-126) 09/16/18 19:59 Total Protein 8.2 G/DL (6.3-8.2) 09/16/18 19:59 Albumin 4.4 g/dL (3.5-5.0) 09/16/18 19:59 Globulin 3.8 gm/dL (2.2-3.9) 09/16/18 19:59 Albumin/Globulin Ratio 1.2 (1.0-2.1) 09/16/18 19:59 Lipase 93 U/L (23-300) 09/16/18 19:59 Urine Color Yellow (YELLOW) 09/16/18 19:57 Urine Clarity Cloudy (Clear) 09/16/18 19:57 Urine pH 6.0 (5.0-8.0) 09/16/18 19:57 Ur Specific Sharon 1.024 (1.003-1.030) 09/16/18 19:57 Urine Protein Negative mg/dL (NEGATIVE) 09/16/18 19:57 Urine Glucose (UA) Neg mg/dL (NEGATIVE) 09/16/18 19:57 Urine Ketones Negative mg/dL (NEGATIVE) 09/16/18 19:57 Urine Blood Negative (NEGATIVE) 09/16/18 19:57 Urine Nitrate Negative (NEGATIVE) 09/16/18 19:57 Urine Bilirubin Negative (NEGATIVE) 09/16/18 19:57 Urine Urobilinogen 0.2-1.0 mg/dL (0.2-1.0) 09/16/18 19:57 Ur Leukocyte Esterase Neg Walker/uL (Negative) 09/16/18 19:57 Urine RBC (Auto) 1 /hpf (0-3) 09/16/18 19:57 Urine Microscopic WBC 2 /hpf (0-5) 09/16/18 19:57 Ur Squamous Epith Cells 3 /hpf (0-5) 09/16/18 19:57 Calcium Oxalate Crystal Many /hpf (<OCC) H 09/16/18 19:57 Urine Bacteria Rare (<OCC) 09/16/18 19:57 - ECG O2 Sat by Pulse Oximetry: 95 (RA) Pulse Ox Interpretation: Normal Medical Decision Making Medical Decision Making: Time: 1929 Initial Plan: * Labs * IV fluids * Protonix inj 80mg IV * Zofran 4mg IV * Influenza AB * US gallbladder and pancreas Time: 2100 --US gallbladder and pancreas FINDINGS: LIVER: Within normal limits in size and echogenicity. No mass. GALLBLADDER: The gallbladder appears within normal limits. No gallbladder wall thickening or pericholecystic fluid. COMMON BILE DUCT: No dilation. 3 mm. PANCREAS: The distal pancreas is obscured by bowel gas. The visualized portion of the pancreas appears within normal limits. RIGHT KIDNEY: Unremarkable. Normal renal contours. No renal mass or calculus. No hydronephrosis. IMPRESSION: Unremarkable right upper quadrant ultrasound. Time: 2135 --Labs reviewed: (-) significant clinical abnormality. Upon provider reevaluation, patient is medically stable, reports feeling better, and requires no further treatment in the ED at this time. Patient will be discharged home. Counseling was provided and all questions were answered regarding diagnosis. There is agreement to discharge plan. Return if symptoms persist or worsen. Clinical Impression: Gastritis Scribe Attestation: Documented by Janel Miles, acting as a scribe for Dk Self MD. Provider Scribe Attestation: All medical record entries made by the Scribe were at my direction and personally dictated by me. I have reviewed the chart and agree that the record accurately reflects my personal performance of the history, physical exam, medical decision making, and the department course for this patient. I have also personally directed, reviewed, and agree with the discharge instructions and disposition. Disposition - Clinical Impression Clinical Impression: Gastritis - Patient ED Disposition Is Patient to be Admitted: No Counseled Patient/Family Regarding: Studies Performed, Diagnosis, Rx Given - Disposition Disposition: Routine/Home Disposition Time: 21:36 Condition: STABLE Prescriptions: Esomeprazole Magnesium [Nexium] 20 mg PO QAM #14 ecc Ondansetron ODT [Zofran ODT] 4 mg PO Q6 PRN #8 odt PRN Reason: Nausea/Vomiting Instructions: Gastritis (DC) Forms: [employer] (Swedish) Print Language: PERSIAN
[2018-09-16 22:48] VITALS: BP 117/76; PULSE 69; RESP 18
--- NOTE | 2018-09-17 16:56 | US ---
Date of service: 09/16/2018 HISTORY: abd pain COMPARISON: None. TECHNIQUE: Sonographic evaluation of the right upper quadrant of the abdomen. FINDINGS: LIVER: Measures 15.5 cm in length. Normal echogenicity of the liver parenchyma. No mass. No intrahepatic bile duct dilatation. GALLBLADDER: Unremarkable. No gallstones. COMMON BILE DUCT: Measures mm. No stones. No dilatation. PANCREAS: 2.2 RIGHT KIDNEY: Measures 11.3 x 4.9 x 4.9 cm in length. Normal echogenicity. No calculus, mass, or hydronephrosis. AORTA: No aneurysmal dilatation. IVC: Unremarkable. OTHER FINDINGS: None . IMPRESSION: Unremarkable exam. Concordant results (preliminary interpretation) provided by [employer].
== END 2018-09-16 21:29 | disposition home or self-care (01) ==
LOC: H.ER 18:19
DX: K29.70 Gastritis, unspecified, without bleeding (principal); Z86.59 Personal history of other mental and behavioral disorders; R73.03 Prediabetes; Z79.899 Other long term (current) drug therapy; E78.00 Pure hypercholesterolemia, unspecified
CPT/HCPCS: 76705; 80053; 81003; 81025; 83690; 85025; 87804; 96360; 99284; C9113; J2405; J7030

== ENCOUNTER 2018-10-28 08:41 | Emergency (ER) | payer SELFPAY ==
[2018-10-28 08:44] VITALS: BMI 28.8
[2018-10-28 08:59] VITALS: O2SAT 98
--- NOTE | 2018-10-28 10:55 | ED PDOC ---
HPI: CCC, URI, Sore Throat Time Seen by Provider: 10/28/18 09:50 Chief Complaint (Nursing): Cough, Cold, Congestion Chief Complaint (Provider): Cough History Per: Patient History/Exam Limitations: no limitations Onset/Duration Of Symptoms: Days (one week ) Current Symptoms Are (Timing): Still Present Additional Complaint(s): 47 year old female presents to the ED for an evaluation of cough onset for one week. Patient reports she has a 4 year old daughter who has bronchitis. She states she had a mild cough that progressed to subjective fever and chills. She has pain to the back and chest while she coughs and sore throat. Patient has an appointment with her primary care on the of this month. Otherwise, she denies chest pain, palpitations, nausea or vomiting. Past Medical History Reviewed: Historical Data, Nursing Documentation, Vital Signs Vital Signs: Last Vital Signs Temp 98.7 F 10/28/18 08:44 Pulse 88 10/28/18 08:44 Resp 17 10/28/18 08:44 BP 138/87 10/28/18 08:44 Pulse Ox 98 10/28/18 08:57 - Medical History PMH: Anxiety, Depression, Diabetes (pre-diabetes), Gastritis, Hypercholesterolemia Denies: Chronic Kidney Disease - Family History Family History: States: Stroke, Diabetes, Hypertension - Home Medications Home Medications: Ambulatory Orders Medication Instructions Recorded Pantoprazole Sodium [Protonix] 40 mg PO DAILY #14 ect 06/05/17 Esomeprazole Magnesium [Nexium] 20 mg PO DAILY #30 capsule. 08/24/17 Ibuprofen [Motrin] 600 mg PO Q6H PRN #20 tab 04/06/18 guaiFENesin/Dextromethorphan 10 ml PO Q4 PRN #1 bottle 04/06/18 [guaiFENesin-DM] Albuterol HFA [Ventolin HFA 90 1 - 2 puff IH Q4H PRN #1 bottle 05/28/18 mcg/actuation (8 g)] Acetaminophen [Tylenol Extra 1,000 mg PO Q6 PRN #100 tablet 07/19/18 Strength] Cyclobenzaprine [Flexeril] 5 mg PO Q8 PRN #15 tab 07/19/18 Esomeprazole Magnesium [Nexium 20 mg PO DAILY #20 capsule. 07/19/18 24Hr] Esomeprazole Magnesium [Nexium] 20 mg PO QAM #14 ecc 09/16/18 Ondansetron ODT [Zofran ODT] 4 mg PO Q6 PRN #8 odt 09/16/18 Azithromycin [Z-Medhat] 250 mg PO DAILY #6 tab 10/28/18 Levocetirizine Dihydrochloride 5 mg PO DAILY #30 tablet 10/28/18 [Xyzal] - Allergies Allergies/Adverse Reactions: Allergies Allergy/AdvReac Type Severity Reaction Status Date / Time No Known Allergies Allergy Verified 09/16/18 18:51 Review of Systems ROS Statement: Except As Marked, All Systems Reviewed And Found Negative Constitutional: Positive for: Fever, Chills ENT: Positive for: Throat Pain Cardiovascular: Negative for: Chest Pain, Palpitations Respiratory: Positive for: Cough Gastrointestinal: Negative for: Nausea, Vomiting Physical Exam - Reviewed Nursing Documentation Reviewed: Yes Vital Signs Reviewed: Yes - Physical Exam Appears: Positive for: Non-toxic, No Acute Distress Head Exam: Positive for: ATRAUMATIC, NORMAL INSPECTION, NORMOCEPHALIC Skin: Positive for: Rash (rash to the abdomen and back which is .3mm with circular area of erythema and central clearance ) Eye Exam: Positive for: Normal appearance, EOMI ENT: Positive for: TM Is/Are (normal). Negative for: Pharyngeal Erythema, Tonsillar Exudate, Tonsillar Swelling Neck: Positive for: Normal, Painless ROM, Supple. Negative for: Decreased ROM Cardiovascular/Chest: Positive for: Regular Rate, Rhythm. Negative for: Murmur Respiratory: Positive for: Crackles (bilateral with full airway injury ) Gastrointestinal/Abdominal: Positive for: Normal Exam, Soft. Negative for: Tenderness Back: Positive for: Normal Inspection Extremity: Positive for: Normal ROM. Negative for: Tenderness, Pedal Edema, Deformity Neurological/Psych: Positive for: Awake, Alert, Normal Tone, Oriented (x3) - ECG O2 Sat by Pulse Oximetry: 98 (RA) Pulse Ox Interpretation: Normal Medical Decision Making Medical Decision Making: Time: 1019 Impression: patient with cough, possible pneumonia, consistent with allergy rhinitis with possible nasal drip triggered cough and possible secondary pneumonia. Rash is constant. Plan: Chest two views (PA/LAT) to r/o pneumonia vs bronchitis Reevaluation Upon provider reevaluation patient is feeling better, is medically stable, and requires no further treatment in the ED at this time. Patient will be discharged with with appropriate antibiotics and allergy medicines. Counseling was provided and all questions were answered regarding diagnosis. There is agreement to discharge plan. Return if symptoms persist or worsen. Scribe Attestation: Documented by Omaira Roth, acting as a scribe for Valeria Castillo MD Provider Scribe Attestation: All medical record entries made by the Scribe were at my direction and personally dictated by me. I have reviewed the chart and agree that the record accurately reflects my personal performance of the history, physical exam, medical decision making, and the department course for this patient. I have also personally directed, reviewed, and agree with the discharge instructions and disposition. Disposition - Clinical Impression Clinical Impression: Seasonal allergies, Bronchitis - Patient ED Disposition Is Patient to be Admitted: No - Disposition Disposition: Routine/Home Disposition Time: 10:43 Condition: STABLE Additional Instructions: Follow up with primary medical doctor. Take medications as prescribed. Return to the emergency department if symptoms worsen or if new symptoms develop. Increase rest and drink plenty of water while symptoms last. Prescriptions: Azithromycin [Z-Medhat] 250 mg PO DAILY #6 tab Levocetirizine Dihydrochloride [Xyzal] 5 mg PO DAILY #30 tablet Instructions: Seasonal Allergies (DC), Acute Bronchitis Forms: [employer]. (S[place]i) Print Language: KYRGYZ
[2018-10-28 11:58] VITALS: BP 120/70; PULSE 72; RESP 20; TEMP 98.6
--- NOTE | 2018-10-28 13:13 | RAD ---
Date of service: 10/28/2018 HISTORY: cough COMPARISON: 07/19/2018. TECHNIQUE: Chest PA and lateral views FINDINGS: LUNGS: No active pulmonary disease. PLEURA: No significant pleural effusion identified. No pneumothorax apparent. CARDIOVASCULAR: No aortic atherosclerotic calcification present. Normal cardiac size. No pulmonary vascular congestion. OSSEOUS STRUCTURES: No significant abnormalities. VISUALIZED UPPER ABDOMEN: Normal. OTHER FINDINGS: None. IMPRESSION: No active disease. No significant interval change compared to the prior examination(s).
== END 2018-10-28 11:30 | disposition home or self-care (01) ==
LOC: H.ER 08:41
DX: J30.2 Other seasonal allergic rhinitis (principal); J40 Bronchitis, not specified as acute or chronic; Z86.59 Personal history of other mental and behavioral disorders; R73.03 Prediabetes